=== PATIENT | male | born 1970 | race Caucasian/White ===

== ENCOUNTER 2018-03-09 07:50 | Emergency (ER) | payer SELFPAY ==
[2018-03-09] MEDS ORDERED: Ketorolac Tromethamine 30 MG/ML VIAL ONE (08:34)
[2018-03-09] MEDS ORDERED: Bicillin LA 1.2 MILLION UNITS/2 ML SYRINGE ONE (08:34)
[2018-03-09] MEDS ORDERED: Dexamethasone 10 MG/ML VIAL ONE (08:36)
== END 2018-03-09 09:27 | disposition home or self-care (01) ==
LOC: ERS 07:50
DX: J02.9 Acute pharyngitis, unspecified (principal); I10 Essential (primary) hypertension; Z79.899 Other long term (current) drug therapy
CPT/HCPCS: 96372; J0561; J1100; J1885